=== PATIENT | male | born 1990 | race Caucasian/White ===

== ENCOUNTER 2019-02-20 10:57 | Emergency (ER) | payer BC, SELFPAY ==
[2019-02-20 11:00] VITALS: BP 140/85; PULSE 66; RESP 16; TEMP 35.1; O2SAT 97
[2019-02-20] MEDS: Normal Saline Flush 10 ML SYR IVP (11:20)
[2019-02-20] MEDS: Normal Saline 1,000 ML 1000 ML IV ×2 (11:25→12:25)
[2019-02-20] MEDS: Ondansetron 4 MG/2 ML VIAL IVP (11:48)
[2019-02-20 12:04] LABS: Abs Immature Grans 0.01 k/cumm (0.0-0.09); Absolute Basophil Count 0.01 k/cumm (0.0-0.2); Absolute Eosinophil Count 0.01 k/cumm (0.0-0.7); Absolute Lymphocyte Count 1.07 k/cumm (1.2-3.4); Absolute Monocyte Count 0.38 k/cumm (0.11-0.7); Absolute Neutrophil Count 7.09 k/cumm (1.2-6.7); Basophils % 0.1; Eosinophils % 0.1; HCT 41.7 % (40.0-50.0); HGB 15.1 g/dL (13.5-17.5); Immature Grans % 0.1; Lymphocytes % 12.5; Mean Corp. HGB Concentration 36.2 g/dL (32.0-36.0); Mean Corpuscular Hemoglobin 31.7 pg (27.0-33.0); Mean Corpuscular Volume 87.4 fL (80-95); Mean Platelet Volume 9.5 fL (8.0-11.0); Monocytes % 4.4; Neutrophils % 82.8; Platelet Count 330 x1000/uL (130-400); RBC 4.77 m/cumm (4.50-6.00); RBC Distribution Width 12.7 % (11.8-14.1); White Blood Cell Count 8.57 k/cumm (4.4-10.8)
[2019-02-20 12:16] LABS: ALT 41 U/L (16-63); AST 21 U/L (15-37); Albumin 4.3 g/dL (3.4-5.0); Alkaline Phosphatase 44 U/L (46-116); Anion Gap 10.5 mmol/L (3-11); BUN 14 mg/dL (7-18); Bilirubin, Total 0.7 mg/dL (0.2-1.0); CO2 26.5 mmol/L (21.0-32.0); CREATININE 1.14 mg/dL (0.70-1.30); Chloride 103 mmol/L (98-107); Glucose 126 mg/dL (70-100); Lipase 67 U/L (73-393); Potassium 3.7 mmol/L (3.5-5.1); Sodium 140 mmol/L (136-145); Total Protein 7.9 g/dL (6.4-8.2)
[2019-02-20 12:21] LABS: Bilirubin Negative (Negative); Blood Negative (Negative); Clarity Clear (Clear); Glucose Negative (Negative); Ketones Negative (Negative); Leukocyte Esterase Negative (Negative); Nitrite Negative (Negative); Specific Gravity 1.015 (1.005-1.025); Urobilinogen 0.2 EU/dL (Up TO 0.2); pH >= 9.0 (5-8)
[2019-02-20] MEDS: diazePAM 10 MG/2 ML SYR 5 MG IVP (13:46)
--- NOTE | 2019-02-20 14:53 | ED.GENADUL_ITS ---
Discharge Plan Disposition Patient Disposition: HOME Condition: Improving Discharge Details Chief Complaint: Nausea/Vomit/Diar Clinical Impression: Nausea & vomiting Primary Care Provider: None,None ED Provider: Ismael Block Home Meds and New Rx's Prescriptions: New ondansetron 4 mg tablet,disintegrating 4 mg PO Q8H PRN (Reason: nausea and vomiting) Qty: 10 RF: 0 Discharge Instructions Instructions: Acute Nausea and Vomiting (ED) Additional Instructions: You may slowly advance your diet as tolerated and stay well-hydrated. Use prescribed medication as needed for further nausea and vomiting. Return immediately for any new or significant worsening of symptoms, any change in your symptoms, or if not improving over the next 24 to 48 hours. Stand Alone Forms: Work Release Referrals: Primary Care Provider [Outside] (As needed for reassessment) Discharge Data Discharge Date/Time-TO BE ENTERED AT DEPARTURE: 02/20/19 15:15 Medical Decision Making Patient presenting to the emergency department for chief complaint of abdominal pain, nausea and vomiting. Patient states that this started approximately 4 AM. Just before going to bed patient does report that he had some beers with dinner along with some canned pasta and a glass of milk. At 4 AM patient woke up and started having significant abdominal discomfort, bloating, nausea vomiting. Patient symptoms have persisted throughout the morning causing him to vomit multiple times. Patient does state history of similar episodes when he was a kid which he would get Zofran and fluids and it would improve. Patient denies any fever chills, rash, diarrhea chest pain shortness of breath or other symptoms. Physical exam shows mild epigastric tenderness to palpation otherwise unremarkable exam. Plan to check labs and give IV fluids along with Zofran pending results. At this time patient does not have any surgical abdominal findings and vital signs are otherwise stable so I do not feel that CT imaging is warranted Review of labs show mild increase of neutrophils and low lymphocytes but no significant elevation of WBCs. CMP shows slightly elevated glucose and low alk phos and lipase otherwise nondiagnostic and urine is also nondiagnostic. Patient continued to have further retching without a lot of productive vomiting so patient given Phenergan along with a second liter of IV fluids Patient continued to have further retching even after Phenergan was given so 2.5 mg of diazepam was given. This finally seemed to resolve patient's symptoms and he stated a lot of improvement. Given this and non-worrisome labs patient was p.o. challenged and was able to tolerate p.o. intake and stated continued improvement of his symptoms. Question of viral etiology versus foodborne illness but given the patient is otherwise stable and improving at this time I feel that he is able to be safely discharged. Reexamination of the abdomen shows no new or worsening symptoms. Close return precautions were discussed given that we did not do any CT imaging at this time which I feel patient is reasonable to return for new or worsening symptoms. After discussion of diagnosis and plan of care patient has no further needs, questions, or concerns and states clear understanding to return to the emergency department for any worsening symptoms. HPI General Mode of arrival: ambulatory . Date/Time Provider Initiated Documentation: 02/20/19 11:22 . Limitations to Documentation: no limitations . Information obtained by: patient and RN notes reviewed . History of Present Illness 29 year old M presents to the emergency department with the chief complaint of Abdominal pain, nausea vomiting, described as moderate and similar to prior episodes, with intensity rated at 6. Quality is described as aching and sharp, and is localized to the abdomen. Patient started experiencing this hour(s) (7) and it has been constant. No relieving factors improve symptom(s), Eating worsens symptoms . Patient notes no other symptoms.. Patient did receive the following treatments prior to arrival, none Related Data Home Medications Medication Instructions Recorded Confirmed ondansetron 4 mg PO Q8H PRN #10 tab 02/20/19 02/20/19 Previous Rx's Medication Instructions Recorded ondansetron 4 mg PO Q8H PRN #10 tab 02/20/19 Allergies Allergy/AdvReac Type Severity Reaction Status Date / Time No Known Allergies Allergy Unverified 02/20/19 17:29 General Stated Complaint: Nausea/Vomit/Diar RICKEY: 3 Review of Systems Constitutional Denies chills, Denies fever(s) and Reports poor appetite Cardiovascular Denies chest pain and Denies dyspnea Respiratory Denies cough and Denies dyspnea Gastrointestinal Reports as per HPI, Reports abdominal pain, Denies melena, Denies change in bowel habits, Denies constipation, Denies diarrhea, Reports nausea and Reports vomiting Genitourinary Denies dysuria Integumentary/Breasts Denies rash [facility] Social History Smoking/Tobacco Use Status: Never Alcohol Intake: current Alcohol Intake frequency: 0-2 drinks per day Drug use: Occasionally Substance use type: marijuana Do you feel safe at home: Yes Do you feel safe in your relationship?: Yes Exam Const General: cooperative Orientation: alert, awake and oriented x3 Resp Effort & Inspection: normal respiratory effort and able to speak in complete sentences Auscultation: clear to auscultation bilaterally Cardio Rate: regular rate Rhythm: regular rhythm Heart Sounds: S1 normal and S2 normal GI Palpation: soft, no hepatosplenomegaly, not firm, no guarding, no masses, no pulsatile masses, not rigid, no splenomegaly and tender in the epigastrum; not at McBurney's point, not periumbilically, Moon's sign negative, psoas sign negative, with no rebound tenderness and Rovsing's sign negative Auscultation: normal bowel sounds Back/Spine/Pelvis Back: no CVA tenderness Neuro General: alert, awake, oriented x3, gait normal and moves all extremities Course Vital Signs Temperature 35.1 C L 02/20/19 11:00 Pulse 66 02/20/19 11:00 Respiratory Rate 16 02/20/19 11:00 Blood Pressure 140/85 02/20/19 11:00 Pulse Oximetry 97 02/20/19 11:00 Temperature 35.1 C L 02/20/19 11:00 Temperature Source Skin 02/20/19 11:00 Pulse 66 02/20/19 11:00 Respiratory Rate 16 02/20/19 11:00 Blood Pressure 140/85 02/20/19 11:00 Blood Pressure Position Sitting 02/20/19 11:00 Pulse Oximetry 97 02/20/19 11:00 Oxygen Delivery Method Room Air 02/20/19 11:00 Oxygen Flow Rate 0 02/20/19 11:00 Pain Level 3 02/20/19 11:00 Comment tried otc antinausea medication 02/20/19 11:00 Lab/Test Results Lab/Test Results: Laboratory Tests Range/Units 02/20/19 02/20/19 02/20/19 11:20 11:20 12:15 WBC (4.4-10.8) k/cumm 8.57 RBC (4.50-6.00) m/cumm 4.77 Hgb (13.5-17.5) g/dL 15.1 Hct (40.0-50.0) % 41.7 MCV (80-95) fL 87.4 MCH (27.0-33.0) pg 31.7 MCHC (32.0-36.0) g/dL 36.2 H RDW (11.8-14.1) % 12.7 Plt Count (130-400) x1000/uL 330 MPV (8.0-11.0) fL 9.5 Immature Gran % 0.1 Neutrophils % 82.8 Lymphocytes % 12.5 Monocytes % 4.4 Eosinophils % 0.1 Basophils % 0.1 Absolute Neutrophils (1.2-6.7) k/cumm 7.09 H Absolute Lymphocytes (1.2-3.4) k/cumm 1.07 L Absolute Monocytes (0.11-0.7) k/cumm 0.38 Absolute Eosinophils (0.0-0.7) k/cumm 0.01 Absolute Basophils (0.0-0.2) k/cumm 0.01 Sodium (136-145) mmol/L 140 Potassium (3.5-5.1) mmol/L 3.7 Chloride (98-107) mmol/L 103 Carbon Dioxide (21.0-32.0) mmol/L 26.5 Anion Gap (3-11) mmol/L 10.5 BUN (7-18) mg/dL 14 Creatinine (0.70-1.30) mg/dL 1.14 Estimated GFR/1.73 m2 (mL/min/1.73m2) >= 60.00 Glucose (70-100) mg/dL 126 H Calcium (8.5-10.1) mg/dL 9.0 Total Bilirubin (0.2-1.0) mg/dL 0.7 AST (15-37) U/L 21 ALT (16-63) U/L 41 Alkaline Phosphatase (46-116) U/L 44 L Total Protein (6.4-8.2) g/dL 7.9 Albumin (3.4-5.0) g/dL 4.3 Lipase (73-393) U/L 67 L Urine Color (Yellow) Yellow Urine Clarity (Clear) Clear Urine pH (5-8) >= 9.0 H Ur Specific [place] (1.005-1.025) 1.015 Urine Protein (Negative) mg/dL Negative Urine Ketones (Negative) mg/dL Negative Urine Blood (Negative) Negative Urine Nitrite (Negative) Negative Urine Bilirubin (Negative) Negative Urine Urobilinogen (Up TO 0.2) EU/dL 0.2 Ur Leukocyte Esterase (Negative) Negative Urine Glucose (Negative) mg/dL Negative
[2019-02-20 15:15] VITALS: BP 127/81; PULSE 62; RESP 14; TEMP 35.3; O2SAT 99
== END 2019-02-20 15:15 | disposition home or self-care (01) ==
PROVIDERS: Emergency Provider Nurse Practitioner Family
DX: R11.2 Nausea with vomiting, unspecified (principal); R10.13 Epigastric pain
CPT/HCPCS: 36415; 80053; 83690; 96361; 96365; 96374; 96375; 99284; 81003; 85025; J2405; J3360

== ENCOUNTER 2019-02-20 17:21 | Emergency (ER) | payer BC, SELFPAY ==
[2019-02-20 17:24] VITALS: BP 147/91; PULSE 53; RESP 24; TEMP 35.8; O2SAT 100
[2019-02-20] MEDS: Lactated Ringers 1,000 ML 1000 ML IV (18:00)
--- NOTE | 2019-02-20 18:00 | ED.GENADUL_ITS ---
Discharge Plan Disposition Patient Disposition: HOME Discharge Details Chief Complaint: Nausea/Vomit/Diar Clinical Impression: Nausea and vomiting Primary Care Provider: None,None ED Provider: Luis Fernando Carroll Home Meds and New Rx's Prescriptions: Continued ondansetron 4 mg tablet,disintegrating 4 mg PO Q8H PRN (Reason: nausea and vomiting) Qty: 10 RF: 0 Discharge Instructions Instructions: Acute Nausea and Vomiting (ED) Additional Instructions: Drink small amounts of clear fluid frequently to stay hydrated. Please contact your primary care physician to arrange follow-up. Return to the ER for any worsening or new concerning symptoms. Medical Decision Making 18:08 --29-year-old male here with nausea and vomiting since early this morning. Seen here earlier in the ED and gave fluid and antiemetics. Not tolerating p.o. intake. Patient had nondiagnostic conference of lab work earlier today. Patient does have some minimal epigastric tenderness with no peritoneal findings - suspect secondary to excessive vomiting. Plan to give IV fluid bolus and Zofran 4 mg IV. --Patient had worsening pain and requested analgesia. Dilaudid 0.5 mg IV administered. Consider acute intra-abdominal surgical process. Plan to obtain CT of the abdomen pelvis. 22:29 --CT of the abdomen pelvis interpreted by radiology: FINDINGS: Liver: Normal. No mass. Gallbladder and bile ducts: Normal. No calcified stones. No ductal dilation. Pancreas: Normal. No ductal dilation. Spleen: Normal. No splenomegaly. Adrenals: Normal. No mass. Kidneys and ureters: Normal. No hydronephrosis. Stomach and bowel: Unremarkable. No obstruction. No mucosal thickening. Appendix: No evidence of appendicitis. Intraperitoneal space: Normal. No free air. No significant fluid collection. Vasculature: Unremarkable. No abdominal aortic aneurysm. Lymph nodes: Unremarkable. No enlarged lymph nodes. Bladder: Unremarkable as visualized. Reproductive: Unremarkable as visualized. Bones/joints: Unremarkable. No acute fracture. Soft tissues: Unremarkable. IMPRESSION: No acute findings. 23:00 --patient reassessed and is tolerating fluid. Feels better after Zofran. Plan for him to maintain hydration with small sips of clear liquid and maintain a clear liquid diet tonight and tomorrow morning. I instructed him to follow-up with his primary care physician. He was encouraged to return for any worsening or new concerning symptoms. Disposition decision was made weighing the risks and benefits of hospitalization versus outpatient treatment, the risk for further decompensation, and the patient's wishes. The patient was stable and requested discharge. Prior to discharge, my usual and customary return precautions were reviewed with the patient - this included follow-up instructions and reason to return to the emergency department if condition worsens, does not improve as expected, or other new concerns arise. HPI General Mode of arrival: ambulatory . Date/Time Provider Initiated Documentation: 02/20/19 17:24 . Limitations to Documentation: no limitations . Information obtained by: patient . HPI Narrative: 29-year-old male presents with chief complaint of nausea and vomiting. Symptoms are severe and constant. Persistent all day today. Patient woke up early this morning with vomiting. Patient was seen here earlier today in the emergency department for his vomiting. Comprehensive laboratory work-up was nondiagnostic. He was given IV fluid and antiemetics and was noted to improve. He was discharged home on Zofran. Unfortunately condition is worsened at home. He has not taken any Zofran. He has some associated epigastric abdominal discomfort and does note some blood-tinged vomit today. He denies melena or bright red blood per rectum. No lower abdominal pain. No SINGLETARY. Related Data Home Medications Medication Instructions Recorded Confirmed ondansetron 4 mg PO Q8H PRN #10 tab 02/20/19 02/20/19 Previous Rx's Medication Instructions Recorded ondansetron 4 mg PO Q8H PRN #10 tab 02/20/19 Allergies Allergy/AdvReac Type Severity Reaction Status Date / Time No Known Allergies Allergy Unverified 02/20/19 17:29 General Stated Complaint: Nausea/Vomit/Diar RICKEY: 3 Review of Systems Review of Systems All systems reviewed & are unremarkable except as noted in HPI and below Constitutional Reports chills Cardiovascular Denies chest pain Respiratory Denies cough Gastrointestinal Reports as per HPI PFSH Social History Smoking/Tobacco Use Status: Never Alcohol Intake: current Alcohol Intake frequency: 0-2 drinks per day Drug use: Occasionally Substance use type: marijuana Do you feel safe at home: Yes Do you feel safe in your relationship?: Yes Exam Const General: cooperative and no acute distress HENMT Head: normocephalic and atraumatic Mouth: moist mucous membranes Eyes Conjunctivae: normal conjunctivae Sclera: normal sclerae Neck Neck: trachea midline and supple Resp Auscultation: clear to auscultation bilaterally, no rales, no rhonchi and no wheezes Cardio Jugular venous pressure: no JVD Rate: bradycardic Rhythm: regular rhythm GI Palpation: soft, not firm, no guarding, no masses, not rigid and tender in the epigastrum Skin General skin exam: no rashes or lesions noted Neuro General: alert, awake, oriented x3 and tone normal Extrem General: no edema Psych Appearance: grossly normal Mental Status: mental status grossly normal Speech and Movement: speech and movement normal Course Vital Signs Temperature 35.8 C L 02/20/19 17:24 Pulse 53 L 02/20/19 17:24 Respiratory Rate 02/20/19 17:24 Blood Pressure 147/91 H 02/20/19 17:24 Pulse Oximetry 100 02/20/19 17:24 Temperature 35.8 C L 02/20/19 17:24 Temperature Source Skin 02/20/19 17:24 Pulse 53 L 02/20/19 17:24 Respiratory Rate 02/20/19 17:24 Respiratory Effort Incrsd Work of Breathing 02/20/19 17:29 Blood Pressure 147/91 H 02/20/19 17:24 Blood Pressure Position Supine 02/20/19 17:24 Pulse Oximetry 100 02/20/19 17:24 Oxygen Delivery Method Room Air 02/20/19 17:24 Oxygen Flow Rate 0 02/20/19 17:24 Pain Level 9 02/20/19 17:24 Comment 02/20/19 17:24
[2019-02-20] MEDS: Ondansetron 4 MG/2 ML VIAL IVP ×2 (18:05→23:09)
[2019-02-20] MEDS: FAMOTIDINE 20 MG/50 ML BAG 200 MG IVPB (18:07)
[2019-02-20] MEDS: DEXTROSE 5%-0.45% SALINE 1,000 ML 150 ML IV (18:49)
--- NOTE | 2019-02-20 20:01 | DI.CT_ITS ---
SYMPTOM/DIAGNOSIS: EPIGASTRIC PAIN, NAUSEA, VOMITING. CT ABDOMEN AND PELVIS: Images were performed from the lung bases through the ischial tuberosities after IV and without oral contrast. The exam is mildly limited by patient motion. There is no abnormal bowel distension or wall thickening. There is a normal quantity of stool. The bladder and prostate are unremarkable. There is no free air, free fluid or abscess. The heart size is normal. The lung bases are clear. The liver, spleen, pancreas, gallbladder, adrenals and kidneys appear normal. The aorta is normal in diameter. IMPRESSION: Negative CT of the abdomen and pelvis.
[2019-02-20] MEDS: HYDROmorphone 2 MG/ML VIAL 0.5 MG IVP (20:12)
[2019-02-20] MEDS: Omnipaque 350 MG/ML 100 ML BTL IJ (20:27)
--- NOTE | 2019-02-20 20:55 | DI.VRAD_ITS ---
EXAM: CT Abdomen and Pelvis With Contrast EXAM DATE/TIME: 02/20/2019 8:02 PM CLINICAL HISTORY: 29 years old, male; Nausea and vomiting; Abdominal pain; Patient HX: Epigastric pain, nausea, vomiting TECHNIQUE: Imaging protocol: Computed tomography of the abdomen and pelvis with intravenous contrast. COMPARISON: No relevant prior studies available. FINDINGS: Liver: Normal. No mass. Gallbladder and bile ducts: Normal. No calcified stones. No ductal dilation. Pancreas: Normal. No ductal dilation. Spleen: Normal. No splenomegaly. Adrenals: Normal. No mass. Kidneys and ureters: Normal. No hydronephrosis. Stomach and bowel: Unremarkable. No obstruction. No mucosal thickening. Appendix: No evidence of appendicitis. Intraperitoneal space: Normal. No free air. No significant fluid collection. Vasculature: Unremarkable. No abdominal aortic aneurysm. Lymph nodes: Unremarkable. No enlarged lymph nodes. Bladder: Unremarkable as visualized. Reproductive: Unremarkable as visualized. Bones/joints: Unremarkable. No acute fracture. Soft tissues: Unremarkable. IMPRESSION: No acute findings. Dictated and Authenticated by: Ishaan Saleh MD. Ordering:KAREN Gould MD
[2019-02-20] MEDS: Ondansetron O.D.T. 4 MG TABEF PO (23:09)
[2019-02-20 23:20] VITALS: BP 147/91; PULSE 53; RESP 18; O2SAT 100
== END 2019-02-20 23:22 | disposition home or self-care (01) ==
PROVIDERS: Emergency Provider Student in an Organized Health Care Education/Training Program
DX: R11.2 Nausea with vomiting, unspecified (principal); R10.13 Epigastric pain; K92.0 Hematemesis
CPT/HCPCS: 36415; 96361; 96365; 96375; 96376; 99285; 74177; 99284; J2405; J3490

== ENCOUNTER 2021-08-04 13:27 | Emergency (ER) | payer BC, SELFPAY ==
[2021-08-04 13:46] VITALS: BP 160/87; PULSE 65; RESP 16; TEMP 36.4; O2SAT 98
--- NOTE | 2021-08-04 13:50 | DI.RAD_ITS ---
Exam(s) XR FOOT RT COMPLETE EXAM: XR FOOT RT COMPLETE CLINICAL HISTORY: fall/ distal lateral foot pain.. TECHNIQUE: 2D digital imaging was performed. COMPARISON: No exams were available for comparison FINDINGS: There is a nondisplaced oblique fracture just distal to the midshaft of the 5th metatarsal. No other fractures. No radiopaque foreign body. No osseous lesions. IMPRESSION: Fifth metatarsal fracture, nondisplaced. DATA REPOSITORY: RADIATION DOSE DELIVERED:
--- NOTE | 2021-08-04 14:30 | ED.GENADUL_ITS ---
Discharge Plan Disposition Patient Disposition: HOME Condition: Stable Discharge Details Clinical Impression: Fracture of fifth metatarsal bone of right foot Primary Care Provider: None,None ED Provider: Ismael Block Home Meds and New Rx's Prescriptions: No Action ondansetron 4 mg tablet,disintegrating 4 mg PO Q8H PRN (Reason: nausea and vomiting) Qty: 10 0RF Discharge Instructions Instructions: Foot Fracture in Adults (ED) Additional Instructions: Continue to keep the foot elevated and you may apply light protected pressure as tolerated by pain. We have placed you on the orthopedic follow-up list and their office will contact you to arrange follow-up appointment. If you have any new or significant worsening of symptoms feel free to return to the emergency de partment otherwise feel free to take [id number] pain medication such as ibuprofen or acetaminophen as needed for discomfort. Stand Alone Forms: Work Release Discharge Data Discharge Date/Time-TO BE ENTERED AT DEPARTURE: 08/04/21 14:58 Medical Decision Making Patient presenting to the emergency department for chief complaint of right foot injury. Patient reports slip and fall at home with toes somewhat bending underneath him during fall. Patient reports mid to distal foot pain mostly on the lateral aspect. Physical exam shows tenderness of the third through fifth metatarsals mostly midshaft to distal toes. Cap refill is intact along with movement and sensation. Review of radiological imaging shows minimally displaced midshaft fracture of the fifth metatarsal. No signs of Marte fracture. Patient placed in a short walking boot and placed upon orthopedic follow-up list. After discussion of diagnosis and plan of care patient has no further needs, questions, or concerns and states clear understanding to return to the emergency department for any worsening symptoms. HPI General Mode of arrival: ambulatory . Date/Time Provider Initiated Documentation: 08/04/21 13:44 . Limitations to Documentation: no limitations . Information obtained by: patient . History of Present Illness 31 year old M presents to the emergency department with the chief complaint of right foot pain after fall, described as severe, with intensity rated at 9. Quality is described as sharp, and is localized to the right and lower extremity. Patient reports no radiation. Patient started experiencing this day(s) (3) and it has been constant. improves with Immobilization improves symptom(s), and Rest improves symptom(s), Movement worsens symptoms . Patient notes no other symptoms.. Patient did receive the following treatments prior to arrival, NSAID Related Data Home Medications Medication Instructions Recorded Confirmed ondansetron 4 mg disintegrating 4 mg PO Q8H PRN #10 tab 02/20/19 08/04/21 tablet Previous Rx's Medication Instructions Recorded ondansetron 4 mg disintegrating 4 mg PO Q8H PRN #10 tab 02/20/19 tablet Allergies Allergy/AdvReac Type Severity Reaction Status Date / Time No Known Allergies Allergy Unverified 08/04/21 13:52 General Stated Complaint: Orthopedic RICKEY: 4 Review of Systems Narrative: 6 systems reviewed and unremarkable except what is marked below. Cardiovascular Cardiovascular: Denies syncope Musculoskeletal Musculoskeletal: Reports as per HPI, Denies numbness and Denies tingling Integumentary/Breasts Skin/Breast: Denies rash, Denies sores and Denies wounds Neurologic Neurologic: Denies syncope, Denies numbness and Denies tingling PFSH All Active Problems (Updated 08/04/21 @ 14:39 by Ismael Block NP) Fracture of fifth metatarsal bone of right foot (Acute) Social History Smoking/Tobacco Use Status: Never Smoking risk assessment performed?: Yes Alcohol Intake: current Alcohol Intake frequency: a few times a week Drug use: Occasionally Substance use type: marijuana Do you feel safe at home: Yes Do you feel safe in your relationship?: Yes Exam Const General: cooperative and no acute distress Orientation: alert, awake and oriented x3 Resp Effort & Inspection: normal respiratory effort and able to speak in complete sentences Cardio Rate: regular rate Rhythm: regular rhythm Pulses: posterior tibial pulses present and dorsalis pedis present Skin General skin exam: no rashes or lesions noted Trauma: no lacerations or abrasions Extrem General: normal exam except as noted Right lower extremity: foot Details: normal capillary refill and tenderness Location: of the lateral foot Location: distally and in the mid-section and of the mid foot Location: laterally; Negative for no ecchymosis Course Vital Signs Vital signs: Vital Signs Temperature 36.4 C L 08/04/21 13:46 Pulse 65 08/04/21 13:46 Respiratory Rate 16 08/04/21 13:46 Blood Pressure 160/87 H 08/04/21 13:46 Pulse Oximetry 98 08/04/21 13:46 Temperature 36.4 C L 08/04/21 13:46 Temperature Source Skin 08/04/21 13:46 Pulse 65 08/04/21 13:46 Respiratory Rate 16 08/04/21 13:46 Respiratory Effort 08/04/21 13:46 Blood Pressure 160/87 H 08/04/21 13:46 Blood Pressure Position Sitting 08/04/21 13:46 Pulse Oximetry 98 08/04/21 13:46 Oxygen Delivery Method Room Air 08/04/21 13:46 Oxygen Flow Rate 0 08/04/21 13:46 Pain Level 2 08/04/21 14:15 PAWSS Have you Been Recently Intoxicated or Drunk Within the Last 30 days?: Yes Have you Ever Experienced Previous Episodes of Alcohol Withdrawal?: No Have you ever Experienced Withdrawal Seizures?: No Have you ever Experienced Delirium Tremens(DT)s?: No Have you ever undergone Alcohol Rehabilitation Treatment (i.e, inpt ot outpatient treatment programs)?: No Have you ever Experienced Blackouts?: No Have you ever Combined Alcohol with other Downers within the last 90 days?: No Have you ever Combined Alcohol with any other Substance of Abuse during the last 90 days?: No Result: 1
== END 2021-08-04 14:58 | disposition home or self-care (01) ==
PROVIDERS: Emergency Provider Nurse Practitioner Family
DX: S92.351A Displaced fracture of fifth metatarsal bone, right foot, initial encounter for closed fracture (principal); W01.0XXA Fall on same level from slipping, tripping and stumbling without subsequent striking against object, initial encounter
CPT/HCPCS: 29515; 99283; 73630

== ENCOUNTER 2024-12-28 07:41 | Emergency (ER) | payer SELFPAY ==
[2024-12-28 07:42] VITALS: BP 169/95; PULSE 55; RESP 15; TEMP 36.4; O2SAT 97
[2024-12-28 07:47] VITALS: BP 169/95; PULSE 55; RESP 15; TEMP 36.4; O2SAT 97
--- NOTE | 2024-12-28 08:07 | W.ED.GENAD ---
Discharge Plan Disposition Patient Disposition: Home Discharge Details Clinical Impression: Abdominal pain, epigastric Primary Care Provider: Unknown,Unknown ED Provider: Ismael Block Home Meds and New Rx's Prescriptions: New sucralfate [Carafate] 1 gram tablet 1 g PO BID Qty: 30 0RF omeprazole 40 mg capsule,delayed release(DR/EC) 40 mg PO DAILY Qty: 30 1RF ondansetron 4 mg tablet,disintegrating 4 mg PO Q8H PRN (Reason: nausea and vomiting) Qty: 10 0RF Discharge Instructions Instructions: Nausea and Vomiting, Adult ED Additional Instructions: Please return the emergency department immediately for any new or significant worsening of symptoms otherwise please slowly advance your diet as tolerated but avoid caffeine, alcohol, tobacco heavy meals, and eating late at night. Stay well-hydrated and take medications as prescribed Stand Alone Forms: Work Release Referrals: [facility] [Provider Group] - 2 weeks Clinical Impression: Abdominal pain, epigastric HPI General Mode of arrival: ambulatory. Date/Time Provider Initiated Documentation: 12/28/24 07:43. Limitations to Documentation: no limitations. Information obtained by: patient and RN notes reviewed. History of Present Illness 34 year old M presents to the emergency department with the chief complaint of Abdominal pain nausea vomiting, described as moderate, severe and similar to prior episodes, Quality is described as aching, and is localized to the abdomen. Patient reports no radiation. Patient started experiencing this day(s) (4) and it has been intermittent. other things that improve symptom(s), (Vomiting) Other factors that worsen symptoms (Stress and eating) . Patient notes no other symptoms.. Patient did receive the following treatments prior to arrival, other (Antacids) Related Data Home Medications ?Medication ?Instructions ?Recorded ?Confirmed omeprazole 40 mg capsule,delayed 40 mg PO DAILY #30 caps 12/28/24 release ondansetron 4 mg disintegrating 4 mg PO Q8H PRN nausea and 12/28/24 tablet vomiting #10 tabs sucralfate 1 gram tablet (Carafate) 1 g PO BID #30 tabs 12/28/24 Previous Rx's ?Medication ?Instructions ?Recorded omeprazole 40 mg capsule,delayed 40 mg PO DAILY #30 caps 12/28/24 release ondansetron 4 mg disintegrating 4 mg PO Q8H PRN nausea and 12/28/24 tablet vomiting #10 tabs sucralfate 1 gram tablet (Carafate) 1 g PO BID #30 tabs 12/28/24 Allergies Allergy/AdvReac Type Severity Reaction Status Date / Time No Known Allergies Allergy Unverified 12/28/24 07:47 General Stated Complaint: Nausea/Vomit/Diar RICKEY: 4 Review of Systems Constitutional Constitutional: Denies chills, Denies fever(s) and Reports poor appetite Cardiovascular Cardiovascular: Denies chest pain and Denies dyspnea Respiratory Respiratory: Denies cough and Denies dyspnea Gastrointestinal Gastrointestinal: Reports as per HPI, Reports abdominal pain, Denies melena, Denies change in bowel habits, Denies constipation, Denies diarrhea, Reports nausea and Reports vomiting Genitourinary Genitourinary: Denies hematuria, Denies difficulty urinating, Denies urinary hesitancy, Denies urinary incontinence and Denies urinary urgency Integumentary/Breasts Skin/Breast: Denies rash Exam Const General: cooperative Orientation: alert, awake and oriented x3 Resp Effort & Inspection: normal respiratory effort and able to speak in complete sentences Auscultation: clear to auscultation bilaterally Cardio Rate: regular rate Rhythm: regular rhythm Heart Sounds: S1 normal and S2 normal GI Palpation: soft, no hepatosplenomegaly, not firm, no guarding, no masses, no pulsatile masses, not rigid, no splenomegaly and tender in the epigastrum Auscultation: normal bowel sounds Back/Spine/Pelvis Back: no CVA tenderness Neuro General: patient alert, patient awake, patient oriented x3, gait normal and moves all extremities Course Vital Signs Vital signs: Vital Signs Temperature 36.4 C 12/28/24 07:42 Pulse 55 L 12/28/24 07:42 Respiratory Rate 15 12/28/24 07:42 Blood Pressure 169/95 H 12/28/24 07:42 Pulse Oximetry 97 12/28/24 07:42 Temperature 36.4 C 12/28/24 07:47 Temperature Source Oral 12/28/24 07:47 Pulse 55 L 12/28/24 07:47 Respiratory Rate 15 12/28/24 07:47 Blood Pressure 169/95 H 12/28/24 07:47 Blood Pressure Position Sitting 12/28/24 07:47 Pulse Oximetry 97 12/28/24 07:47 Oxygen Delivery Method Room Air 12/28/24 07:47 Oxygen Flow Rate 0 12/28/24 07:47 Pain Level 7 12/28/24 07:47 Medical Decision Making Patient presenting to the emergency department for chief complaint of abdominal pain. Reports that he has had similar episodes in the past and was worked up in the emergency department with no specific findings. He states that pain has seemed to increase with stress and with some food intake but is intermittent. This episode patient has had constant symptoms since Wednesday and has tried antacids and trying to stay hydrated but has not had relief. Vomiting does seem to help briefly but then symptoms worsen. Patient denies fever chills, diarrhea, black or tarry stools, hematic emesis, and all other review of symptoms is negative. Physical exam shows soft abdomen with normal active bowel sounds and some epigastric tenderness otherwise negative exam. Did discussed with patient also potential of cannabinoid hyperemesis syndrome because he does use marijuana but he states that it is intermittent. Will perform labs due to significant vomiting and patient stating some dehydration we will give IV fluids, Zofran p.o., Carafate, Pepcid, and omeprazole to help with symptom management. Given soft abdomen with normal active bowel sounds no worrisome surgical findings on physical exam we will hold off on CAT scan at this point. Reviewed patient's labs and CBC is reassuring, CMP does show some signs of dehydration and elevated bilirubin but otherwise labs are nonemergent. Reassessed patient and patient has had continued symptoms and actually has had an episode of emesis. Discussed results with patient and after discussion shared decision-making was utilized and will order a abdominal ultrasound. Pending results will give more IV fluids, IV acetaminophen for pain (patient states he would like to avoid any narcotic), and ultrasound. Ultrasound report reviewed and has no acute findings. Patient was reassessed and did have improvement of pain but still having significant nausea. 1.25 of droperidol was given IV Reassessed patient patient does state improvement of overall symptoms but not full resolution. Will prescribe patient Carafate Zofran and omeprazole along with refer to general surgery for reassessment and consideration of further imaging for potential of peptic ulcer given that symptoms have been going on intermittently for years. Patient does not currently have a primary care provider and was instructed to obtain as soon as possible insurance. After discussion of diagnosis and plan of care patient has no further needs, questions, or concerns and states clear understanding to return to the emergency department for any worsening symptoms. This documentation was generated using [employer] dictation system, please disregard any oddities of phrase or misspellings. Medical Records Medical records reviewed: Yes I reviewed the patient's medical records. Medical records narrative: Reviewed previous emergency department visit [facility] All Active Problems (Updated 12/28/24 @ 11:35 by Ismael Block NP) Abdominal pain, epigastric (Acute) Social History Smoking/Tobacco Use Status: Never Smoking risk assessment performed?: Yes Alcohol Intake: current Alcohol Intake frequency: a few times a week Drug use: Occasionally Substance use type: marijuana Housing: house Do you feel safe at home: Yes Do you feel safe in your relationship?: Yes PAWSS Have you Been Recently Intoxicated or Drunk Within the Last 30 days?: No Have you Ever Experienced Previous Episodes of Alcohol Withdrawal?: No Have you ever Experienced Withdrawal Seizures?: No Have you ever Experienced Delirium Tremens(DT)s?: No Have you ever undergone Alcohol Rehabilitation Treatment (i.e, inpt ot outpatient treatment programs)?: No Have you ever Experienced Blackouts?: No Have you ever Combined Alcohol with other Downers within the last 90 days?: No Have you ever Combined Alcohol with any other Substance of Abuse during the last 90 days?: No Result: 0
[2024-12-28] MEDS: Ondansetron O.D.T. 4 MG TABEF PO (08:19)
[2024-12-28] MEDS: Famotidine 20 MG TAB PO (08:19)
[2024-12-28] MEDS: Sucralfate 1 GM TAB PO (08:19)
[2024-12-28] MEDS: Omeprazole 20 MG CAPCR PO (08:19)
[2024-12-28] MEDS: Normal Saline 1,000 ML 1000 ML IV ×2 (08:50→10:35)
[2024-12-28 08:53] LABS: Abs Immature Grans 0.02 10^3/uL (0.0-0.06); HCT 40.9 % (40.0-50.0); HGB 14.5 g/dL (13.5-17.5); Immature Grans % 0.2 %; MCH 31.5 pg (27.0-33.0); MCHC 35.5 % (32.0-36.0); MCV 89 fL (80-95); MPV 9.1 fL (8.0-11.0); Platelet Count 339 10^3/uL (130-400); RBC 4.61 10^6/uL (4.36-5.78); RDW 12.2 % (11.8-14.1); RDW-SD 39.1 fL; WBC 8.83 10^3/uL (4.4-10.8)
[2024-12-28 09:11] LABS: ALT 30 U/L (16-63); AST 14 U/L (15-37); Albumin 4.5 g/dL (3.4-5.0); Alkaline Phosphatase 45 U/L (46-116); Anion Gap 13.0 mmol/L (3-11); BUN 16 mg/dL (7-18); Bilirubin, Total 1.8 mg/dL (0.2-1.0); CO2 24.0 mmol/L (21.0-32.0); Calcium 9.4 mg/dL (8.5-10.1); Chloride 98 mmol/L (98-107); Estimated GFR 74.39 (mL/min/1.73m2); Glucose 112 mg/dL (74-106); Lipase 19 U/L (<78); Magnesium 1.9 mg/dL (1.8-2.4); Potassium 3.7 mmol/L (3.5-5.1); Sodium 135 mmol/L (136-145); Total Protein 8.0 g/dL (6.4-8.2)
--- NOTE | 2024-12-28 09:30 | DI.US_ITS ---
Exam(s) US ABDOMEN EXAM: US ABDOMEN CLINICAL HISTORY: Epigastric right upper quadrant abdominal pain TECHNIQUE: Ultrasound of complete upper abdomen performed using standard protocol. COMPARISON: CT CT ABDOMEN PELVIS W from 02/20/2019 FINDINGS: There is no ascites evident. LIVER: There are no hepatic lesions evident nor obvious dilatation of intrahepatic ducts. GALLBLADDER/BILIARY: There are no gallstones. No gallbladder wall edema nor pericholecystic fluid. The common hepatic duct isnot dilated, measuring 3-4mm at the level of milly hepatis. PANCREAS: There is no evidence of pancreatic mass nor dilatation of the pancreatic duct. SPLEEN: The spleen is not enlarged and there are no intrasplenic lesions evident. KIDNEYS:Kidneys exhibit normal size with no evidence of solid mass, calculus, nor hydronephrosis. No cortical cysts evident. ABDOMINAL AORTA: There is no evidence of abdominal aortic aneurysm. IVC: Normal diameter where visualized. IMPRESSION: 1. No evidence of cholelithiasis nor dilatation of the biliary tree. 2. No other significant ultrasound findings in the upper abdomen. 3. There is no ascites. DATA REPOSITORY:
[2024-12-28] MEDS: ACETAMINOPHEN 1,000 MG/100 ML BAG 400 MG IVPB (09:50)
[2024-12-28] MEDS: Droperidol 5 MG/2 ML VIAL 1.25 MG IVP (10:44)
[2024-12-28] MEDS: Normal Saline 50 ML 100 ML (10:50)
[2024-12-28 12:05] VITALS: BP 113/58; PULSE 50; RESP 16; O2SAT 98
== END 2024-12-28 12:07 | disposition home or self-care (01) ==
PROVIDERS: Emergency Provider Nurse Practitioner Family
DX: R10.13 Epigastric pain (principal); R11.0 Nausea
CPT/HCPCS: 36415; 80053; 83690; 96361; 96374; 96375; 99284; 76700; 83735; 85025; J0131; J1790